=== PATIENT | female | born 1935 | race Caucasian/White ===

== ENCOUNTER 2017-07-18 15:49 | Outpatient (CLI) | payer MEDICARE, BC ==
--- NOTE | 2017-07-18 16:16 | CT ---
HEAD CT NONCONTRAST: Comparison: 12-31-15 Indication: TIA. FINDINGS: There is no evidence of acute intracranial hemorrhage, mass effect, or midline shift. There is mild chronic microvascular ischemic disease. No acute fluid level of the imaged paranasal sinuses. IMPRESSION: No acute intracranial hemorrhage or mass effect. POS: [facility]
== END 2017-07-18 15:50 | disposition home or self-care (01) ==
LOC: CT 15:49
PROVIDERS: ATTEND Physician Assistant
DX: G45.9 Transient cerebral ischemic attack, unspecified (principal)
CPT/HCPCS: 70450

== ENCOUNTER 2017-07-24 12:34 | Outpatient (CLI) | payer MEDICARE, BC ==
--- NOTE | 2017-07-24 16:09 | ULT ---
BILATERAL CAROTID DUPLEX ULTRASOUND: DATE: 07/24/17 HISTORY: TIA. TECHNIQUE: Mora scale ultrasound with color flow and spectral Doppler imaging of the extracranial carotid arter y systems was performed bilaterally. FINDINGS: There is plaque formation on either side. The peak systolic velocity in the right ICA measures 111 cm/second with an end-diastolic velocity of 29 cm/second and a systolic ratio of 0.98. The peak systolic velocity in the left ICA measures 85 cm/second with an end-diastolic velocity of 2 1 cm/second and a systolic ratio of 1.10. Flow in both vertebral arteries remains antegrade. IMPRESSION: No evidence of hemodynamically significant stenosis. POS: OFF
== END 2017-07-24 12:35 | disposition home or self-care (01) ==
LOC: ULT 12:34
PROVIDERS: ATTEND Physician Assistant
DX: G45.9 Transient cerebral ischemic attack, unspecified (principal)
CPT/HCPCS: 93880

== ENCOUNTER 2018-02-04 18:18 | Emergency (ER) | payer MEDICARE, BC ==
[2018-02-04] MEDS ORDERED: Adacel (T-DAP) 0.5 ML VIAL ONE (19:34)
--- NOTE | 2018-02-04 19:43 | RAD ---
LEFT TIBIA AND FIBULAR TWO VIEWS: HISTORY: [place] fell on patient's leg. Pain. COMPARISON: None. FINDINGS: Mild bone demineralization. No fracture. No cortical irregularity or periosteal reaction. IMPRESSION: Unremarkable two views left tibia and fibula. POS: [facility]
[2018-02-04] MEDS ORDERED: Lidocaine 1% w/Epinephrine 1:100K 20 ML VIAL ONE (20:02)
[2018-02-04] MEDS ORDERED: Bacitracin Zinc 1 Packet ONE (20:50)
[2018-02-04] MEDS ORDERED: Acetaminophen 500 MG TAB ONE (21:02)
== END 2018-02-04 21:17 | disposition home or self-care (01) ==
LOC: ERS 18:18
DX: S81.812A Laceration without foreign body, left lower leg, initial encounter (principal); F41.9 Anxiety disorder, unspecified; F32.9 Major depressive disorder, single episode, unspecified; G62.9 Polyneuropathy, unspecified; Z79.899 Other long term (current) drug therapy; W20.8XXA Other cause of strike by thrown, projected or falling object, initial encounter
CPT/HCPCS: 12002; 90471; 90715; J2001

== ENCOUNTER 2019-09-17 12:29 | Outpatient (CLI) | payer MEDICARE, BC ==
--- NOTE | 2019-09-17 11:40 | MMO ---
Bilateral MAMMO Bilat Screen [facility]. CLINICAL HISTORY: Patient is 83 years old and is seen for screening. The patient has no family history of breast cancer. The patient has no personal history of cancer. VIEWS: The views performed were: bilateral craniocaudal with tomosynthesis and bilateral mediolateral oblique with tomosynthesis. FILMS COMPARED: The present examination has been compared to prior imaging studies performed at [facility] on 07/17/2007, 08/23/2009, 01/27/2011 and 11/06/2012. This study has been interpreted with the assistance of computer-aided detection. MAMMOGRAM FINDINGS: There are scattered fibroglandular densities. There are stable benign appearing calcifications seen in both breasts. There are no suspicious masses, calcifications or areas of architectural distortion. There are no suspicious masses, suspicious calcifications, or new areas of architectural distortion. IMPRESSION: THERE IS NO MAMMOGRAPHIC EVIDENCE OF MALIGNANCY. A ROUTINE FOLLOW-UP MAMMOGRAM IN 1 YEAR IS RECOMMENDED. THE RESULTS OF THIS EXAM WERE SENT TO THE PATIENT. ACR BI-RADS Category 2 - Benign finding MAMMOGRAPHY NOTE: 1. A negative mammogram report should not delay a biopsy if a dominant of clinically suspicious mass is present. 2. Approximately 10% to 15% of breast cancers are not detected by mammography. 3. Adenosis and dense breasts may obscure an underlying neoplasm. Reported by: ROD GAY MD Electonically Signed: [id number]
== END 2019-09-17 12:30 | disposition home or self-care (01) ==
LOC: BICMAMMO 12:29
PROVIDERS: ATTEND Family Medicine
DX: Z12.31 Encounter for screening mammogram for malignant neoplasm of breast (principal)
CPT/HCPCS: 77063; 77067

== ENCOUNTER 2019-12-08 13:20 | Observation (INO) | payer MEDICARE, BC ==
[~2019-12-08 13:20] MED LIST: Iopamidol-370 76% 500 ML 1 ML ONE
[2019-12-08 14:04] LABS: #Lymphocytes 0.8 thou/uL (1.20-3.40); #Monocytes 0.4 thou/uL (0.11-0.59); %Basophils 0.7 % (0.0-1.0); %Eosinophils 0.8 % (0.0-10.0); %Lymphocytes 12.2 % (21.0-51.0); %Monocytes 5.6 % (0.0-10.0); %Neutrophils 80.7 % (42.0-75.0); Hemoglobin 8.5 g/dL (12.0-16.0); Mean Corpuscular HGB CONC 31.1 g/dL (32.0-36.0); Mean Corpuscular Hemoglobin 23.2 pg (27.0-31.0); Mean Corpuscular Volume 74.5 fL (78.0-98.0); Mean Platelet Volume 10.1 fL (7.4-10.4); Platelet Count 200 thou/uL (130-400); RBC Distribution Width 17.4 % (11.5-14.5); Red Blood Cell (RBC) Count 3.68 mill/uL (4.20-5.40); White Blood Cell (WBC) Count 6.2 thou/uL (4.8-10.8)
[2019-12-08 14:27] LABS: ALT (SGPT) 13 U/L (8-55); AST (SGOT) 26 U/L (5-34); Albumin 4.8 g/dL (3.4-4.8); Alkaline Phosphatase 77 U/L (40-110); Anion Gap 14 mmol/L (10-20); BUN (Urea Nitrogen) 15 mg/dL (9.8-20.1); Bilirubin, Total 0.7 mg/dL (0.2-1.2); Calc. Creatinine Clearance 0 mL/min (70-130); Calcium 9.6 mg/dL (7.8-10.44); Carbon Dioxide 25 mmol/L (23-31); Chloride 97 mmol/L (98-107); Estimated GFR-MDRD 67; Globulin 3.2 g/dL (2.4-3.5); Glucose 96 mg/dL (83-110); Potassium 4.4 mmol/L (3.5-5.1); Sodium 132 mmol/L (136-145)
--- NOTE | 2019-12-08 14:37 | RAD ---
EXAM: Single view of the chest HISTORY: Syncope COMPARISON: 12/31/2015 FINDINGS: Single view of the chest shows an enlarged but stable cardiomediastinal silhouette. Athero sclerotic calcifications are seen in the aorta. There is no evidence of consolidation, mass, or pleural effusion. The bones are unremarkable. IMPRESSION: No evidence of acute cardiopulmonary disease
--- NOTE | 2019-12-08 14:49 | CT ---
CT BRAIN NONCONTRAST: DATE: 12/08/2019 HISTORY: 84-year-old female status post syncope FINDINGS: There is no evidence of acute intra-axial or extra-axial hemorrhage. There is no midline shift or any other mass effect. There is no extra-axial fluid collection. There is no evidence of obstructive hydrocephalus. Calvarium is intact. IMPRESSION: No acute intracranial findings.
--- NOTE | 2019-12-08 17:28 | CT ---
[facility]: 12/08/2019 COMPARISON:12/31/2015 HISTORY:Syncope, elevated d-dimer TECHNIQUE: Serial axial CT imaging at2.5 from thethoracic inlet through upper abdomen with IV contras t using CT angiogram protocol. Coronal and sagittal 3-D reformatted imaging obtained Findings:No axillary, hilar, or mediastinal lymphadenopathy. Limited assessment of the upper abdomen demonstrates no acute findings. The upper abdominal aorta dem onstrates scattered atherosclerotic calcification. No pleural, pericardial, or mediastinal fluid. Scattered coronary arterial calcification is noted. There is atherosclerotic calcification of the aortic arch and the descending thoracic aorta. Motion artifact limits detailed assessment of the lung parenchyma within the lung bases. No acute pul monary parenchymal abnormality is seen on either side. No endobronchial lesion is noted. No CT angiographic evidence for acute pulmonary arterial embolism. Of note, distal pulmonary arteries are not optimally assessed within the lung bases on the basis of respiratory motion artifact. Review of the osseous structures demonstrates multilevel degenerative change within the imaged spine, most prominent within the lower cervical spine in the mid thoracic spine. No worrisome lytic or blastic bone lesion Impression:Chronic findings as detailed above. No evidence for central pulmonary arterial embolism. E valuation of the lung bases limited secondary to motion.
[2019-12-08 17:35] LABS: Bilirubin Negative (Negative); Blood, Urine Negative (Negative); Clarity Clear (Clear); Glucose, Urine (Dipstick) Normal (Negative); Leukocyte 500 Leu/uL (Negative); Nitrite Negative (Negative); Protein, Urine (Dipstick) Negative (Neg-Trace); RBC/HPF 0-3 HPF (0-3); Squamous Epithelial 0-3 HPF (0-3); Transitional Epithelial 0-3 HPF (None Seen); Urobilinogen Normal mg/dL (Less than 2)
[2019-12-08 17:52] LABS: Bacteria/HPF Rare-Few HPF (None Seen)
[2019-12-08] MEDS ORDERED: cefTRIAXone\\ROCEPHIN 2 GM VIAL ONE (18:09)
[2019-12-08] MEDS ORDERED: Ketorolac Tromethamine 30 MG/ML VIAL ONE (18:09)
[2019-12-08 19:02] LABS: Troponin I Less than 0.010 ng/mL (< 0.028)
[2019-12-08] MEDS ORDERED: Acetaminophen 325 MG TAB PO PRN (20:28)
[2019-12-08] MEDS ORDERED: Acetaminophen 650 MG Suppository PR PRN (20:28)
[2019-12-08] MEDS ORDERED: Acetaminophen/Codeine 30-300mg Tablet PO PRN (21:14)
[2019-12-08] MEDS ORDERED: Melatonin 3 MG TAB PO PRN (21:14)
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
[2019-12-08 22:09] LABS: Troponin I Less than 0.010 ng/mL (< 0.028)
--- NOTE | 2019-12-08 22:21 | RAD ---
4 views cervical spine: 12/08/2019 COMPARISON: None HISTORY: Diffuse pain FINDINGS: Open-mouth odontoid view demonstrates a normal-appearing dens and C1-2 articulation. Latera l exam demonstrates multilevel disc space narrowing and degenerative endplate change, most prominent at C5-6 and C6-7. There is anterolisthesis at C4-5 measuring 3-4 mm. No acute osseous abnor mality. IMPRESSION: Degenerative change as above.
--- NOTE | 2019-12-08 22:23 | RAD ---
2 views lumbar spine: 12/08/2019 COMPARISON: None HISTORY: Pain FINDINGS: Contrast media within the urinary bladder limits assessment of the pelvis on frontal imagin g. There is prominent scoliotic curvature of the lumbar spine with apex to the right. There is anterolisthesis at L5-S1 measuring approximately 1.4 cm. Multilevel disc space narrowing and degenera tive endplate change noted within the lumbar spine. There is atherosclerotic calcification of the abdominal aorta. IMPRESSION: Degenerative change as above.
--- NOTE | 2019-12-08 22:24 | RAD ---
Frontal and lateral imaging of the thoracic spine: 12/08/2019 COMPARISON: None HISTORY: Pain FINDINGS: No fracture or dislocation. There is multilevel lower thoracic spine disc space narrowing, degenerative endplate change, and anterior osteophyte formation. Thoracic pedicles appear intact on frontal imaging. No acute osseous abnormality. IMPRESSION: No acute findings.
[2019-12-08] MEDS: Famotidine/PF 20 mg/2ml Vial SLOW IVP SCH (22:43)
[2019-12-08] MEDS ORDERED: Famotidine/PF 20 mg/2ml Vial ONE (22:44)
[2019-12-08 22:52] LABS: Lactic Acid 2.1 mmol/L (0.5-2.2)
[2019-12-08] MEDS ORDERED: Acetaminophen 325 MG TAB ONE (22:55)
[2019-12-08] MEDS ORDERED: Pregabalin 75 MG CAP PO SCH (23:30)
[2019-12-08] MEDS ORDERED: Atorvastatin Calcium 10 MG TAB PO SCH (23:30)
[2019-12-09 06:18] LABS: #Eosinphils 0.1 thou/uL (0.0-0.7); #Lymphocytes 1.2 thou/uL (1.20-3.40); #Monocytes 0.5 thou/uL (0.11-0.59); #Neutrophils 2.1 thou/uL (1.40-6.50); %Basophils 0.8 % (0.0-1.0); %Eosinophils 3.6 % (0.0-10.0); %Lymphocytes 31.1 % (21.0-51.0); %Monocytes 12.7 % (0.0-10.0); %Neutrophils 51.8 % (42.0-75.0); Hemoglobin 7.8 g/dL (12.0-16.0); Mean Corpuscular HGB CONC 31.2 g/dL (32.0-36.0); Mean Corpuscular Hemoglobin 23.2 pg (27.0-31.0); Mean Corpuscular Volume 74.4 fL (78.0-98.0); Mean Platelet Volume 10.4 fL (7.4-10.4); Platelet Count 178 thou/uL (130-400); RBC Distribution Width 17.4 % (11.5-14.5); Red Blood Cell (RBC) Count 3.37 mill/uL (4.20-5.40)
[2019-12-09 06:34] LABS: Anion Gap 10 mmol/L (10-20); BUN (Urea Nitrogen) 11 mg/dL (9.8-20.1); Calc. Creatinine Clearance 0 mL/min (70-130); Carbon Dioxide 26 mmol/L (23-31); Chloride 100 mmol/L (98-107); Estimated GFR-MDRD 73; Glucose 87 mg/dL (83-110); Potassium 4.4 mmol/L (3.5-5.1); Sodium 132 mmol/L (136-145)
[2019-12-09 07:23] VITALS: BMI 20.2
[2019-12-09] MEDS: Famotidine/PF 20 mg/2ml Vial SLOW IVP SCH (09:09)
[2019-12-09] MEDS ORDERED: Midodrine HCl 5 MG TAB PO SCH ×2 (15:45→21:00)
[2019-12-09 16:06] VITALS: BP 146/65; TEMP 98.7
[2019-12-09] MEDS ORDERED: cefTRIAXone\\ROCEPHIN 2 GM in Sodium Chloride 0.9% 100 ML IVPB SCH (18:00)
[2019-12-09] MEDS ORDERED: Atorvastatin Calcium 10 MG TAB PO SCH (21:00)
[2019-12-09] MEDS ORDERED: Pregabalin 75 MG CAP PO SCH (21:00)
--- NOTE | 2019-12-10 01:55 | DIS ---
DATE OF ADMISSION: 12/08/2019 DATE OF DISCHARGE: 12/09/2019 DISCHARGE DIAGNOSES: 1. Near syncope. 2. Orthostatic hypotension. 3. Urinary tract infection. 4. Hyponatremia. CONDITION OF PATIENT ON THE DAY OF DISCHARGE: Stable. I assessed Ms. Goldman on the day of discharge. She denies any chest pain or shortness of breath. She denies any dysuria or increased frequency of urination. Vital signs are stable. S1 and S2 are heard, regular. Lungs are clear to auscultation bilaterally. DISCHARGE MEDICATIONS: She has been started on midodrine 2.5 mg 3 times a day and on cefdinir 300 mg 2 times a day for 1 week. Otherwise, no change was made to her pre-admission home medications, which include: 1. Vision vitamins 1 tablet 2 times a day. 2. Calcium/vitamin D3 two capsules daily. 3. Levothyroxine 125 mcg daily. 4. Omeprazole 20 mg daily. 5. Oxybutynin 5 mg daily. 6. Pravachol 40 mg at bedtime. 7. Pregabalin 150 mg 2 times a day. 8. Zoloft 25 mg daily. 9. Tylenol Extra Strength p.r.n. HOSPITAL COURSE: Ms. Goldman is a pleasant 84-year-old lady, who was admitted to [facility] following near syncope on December 08, 2019. She also complained of back pain. Cervical spine x-rays showed degenerative changes. Lumbar spine x-rays showed degenerative changes. Thoracic spine x-rays showed no acute findings. She improved clinically. She was found to have orthostatic hypotension. She has been started on midodrine. Random cortisol level and TSH were normal. Urinalysis was suggestive of urinary tract infection. Preliminary urine culture is growing a gram-negative mayra. The patient is advised to follow up with primary care provider for final urine culture report. She is also advised to check her blood pressure and heart rate 3 times a day in lying down and standing positions and show the readings to her primary care provider. LABORATORY DATA: On the day of discharge, she has sodium of 132, potassium 4.4, creatinine 0.75, white count 4000, hemoglobin 7.8, and platelet count 178,000. POST ACUTE CARE FOLLOWUP: With primary care provider in 3 days. DIET: Heart healthy. ACTIVITY: As tolerated. DISCHARGE DESTINATION: Home. Please note that Ms. Goldman was seen by PT and OT services. She was recommended home health for PT and OT. However, she did not wish to have home health. She is getting a prescription for outpatient physical therapy and occupational therapy. Job ID: [id number] MTDD
[2019-12-10] MEDS ORDERED: Levothyroxine Sodium 125 MCG TAB PO SCH (06:00)
[2019-12-10] MEDS ORDERED: Oxybutynin 5 MG TAB PO SCH (09:00)
== END 2019-12-09 18:48 | disposition home or self-care (01) ==
LOC: ERS 13:20 → ERHOLD 18:13 → 2SW 12-09 06:52
PROVIDERS: ADMIT Internal Medicine; ATTEND Internal Medicine
DX: I95.1 Orthostatic hypotension (principal); N39.0 Urinary tract infection, site not specified; E87.1 Hypo-osmolality and hyponatremia; R53.81 Other malaise; D64.9 Anemia, unspecified; G89.29 Other chronic pain; M54.9 Dorsalgia, unspecified; F41.9 Anxiety disorder, unspecified; F32.9 Major depressive disorder, single episode, unspecified; M41.9 Scoliosis, unspecified; G57.90 Unspecified mononeuropathy of unspecified lower limb; M41.86 Other forms of scoliosis, lumbar region; I70.0 Atherosclerosis of aorta; Z66 Do not resuscitate; Z79.899 Other long term (current) drug therapy
CPT/HCPCS: 70450; 71045; 71275; 72040; 72072; 72100; 80048; 80053; 82533; 83605; 83735; 83880; 84145; 84443; 84484 ×2; 85025 ×2; 85379; 87077; 87086; 87186; 87804 ×2; 93005; 94760; 96361; 96365; 96375 ×2; 96376; 97139 ×3; 99285; G0378 ×3; 36415; 81003; 81015; J0696; J1885; J3490; Q9967; S0028

== ENCOUNTER 2020-02-17 08:55 | Outpatient (CLI) | payer MEDICARE, BC ==
--- NOTE | 2020-02-17 09:18 | RAD ---
Exam: 3 views sacrum and coccyx HISTORY: Patient fell 4 weeks ago. Coccydynia began 2 weeks ago FINDINGS: Lateral projection does not demonstrate any obvious fracture. Inlet and outlet views of the sacrum do not demonstrate an obvious sacral fracture. Visualized sacral ala do appear to be preserved. There is mild bone demineralization. Visualized obturator rings and bony pelvis are intact IMPRESSION: No definite posttraumatic change in the sacrum.
--- NOTE | 2020-02-17 09:20 | RAD ---
EXAM: XR Pelvis AP STANDARD PROVIDED CLINICAL HISTORY: Coccydynia which began 2 weeks ago. COMPARISON: None FINDINGS: Right convex scoliosis of the lumbar spine is present with multilevel degenerative changes in the lum bar spine. No fracture is seen involving the pelvis. There is no dislocation seen. Multiple calcifications overlie the pelvis most likely attributable to phleboliths and vascular type calcifica tions. IMPRESSION: 1. No acute osseous abnormality involving the pelvis. 2. Right convex scoliosis lumbar spine with multilevel degenerative changes in the lumbar spine.
== END 2020-02-17 08:56 | disposition home or self-care (01) ==
LOC: BICRAD 08:55
PROVIDERS: ATTEND Nurse Practitioner Family
DX: M53.3 Sacrococcygeal disorders, not elsewhere classified (principal); M41.9 Scoliosis, unspecified; M47.816 Spondylosis without myelopathy or radiculopathy, lumbar region
CPT/HCPCS: 72170; 72220